=== PATIENT | male | born 1995 | race Caucasian/White ===

== ENCOUNTER 2020-02-06 14:53 | Emergency (ER) | payer BC, SELFPAY ==
[2020-02-06 15:05] VITALS: BP 152/80; PULSE 83; RESP 16; TEMP 36.7; O2SAT 100
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
--- NOTE | 2020-02-06 16:10 | PC.NURSE ---
Tramaine tape applied to 1st and 2nd toe on the left foot.
== END 2020-02-06 15:44 | disposition home or self-care (01) ==
PROVIDERS: Emergency Provider Nurse Practitioner; PCP Internal Medicine
DX: S91.202A Unspecified open wound of left great toe with damage to nail, initial encounter (principal); X58.XXXA Exposure to other specified factors, initial encounter; I10 Essential (primary) hypertension
CPT/HCPCS: 99213; G0463